=== PATIENT | female | born 1970 ===

== ENCOUNTER 2018-08-01 02:47 | Emergency (ER) | payer MEDICAID, OTHER ==
[2018-08-01 03:13] VITALS: RESP 16
[2018-08-01] MEDS ORDERED: Sodium Chloride 0.9% 1,000 ML IV STA (03:16)
[2018-08-01] MEDS ORDERED: Iohexol 240 (50 ml) PO ONE (03:17)
--- NOTE | 2018-08-01 03:19 | ED PDOC ---
HPI: Abdomen Chief Complaint (Provider): abdominal pain History Per: Patient History/Exam Limitations: no limitations Onset/Duration Of Symptoms: Days (3) Current Symptoms Are (Timing): Still Present Location Of Pain/Discomfort: Diffuse Associated Symptoms: Diarrhea Additional Complaint(s): 48 y/o female presents for evaluation of diffuse abdominal pain x 3 days. Ass ociated multiple episodes of watery diarrhea. Patient reports two episodes of vomiting at onset, none since. Denies fever, chest pain, shortness of breath, palpitations, urinary symptoms, recent travel, sick contacts. Abnormal Vaginal Bleeding: No <Roseann Mccurdy - Last Filed: 08/01/18 04:40> <Enzo Sorensen - Last Filed: 08/01/18 06:36> Time Seen by Provider: 08/01/18 03:00 Chief Complaint (Nursing): GI Problem Past Medical History Reviewed: Historical Data, Nursing Documentation, Vital Signs Vital Signs: Last Vital Signs Temp 97.8 F 08/01/18 03:08 Pulse 90 08/01/18 03:08 Resp 16 08/01/18 03:08 BP 117/64 08/01/18 03:08 Pulse Ox 100 08/01/18 03:08 - Medical History PMH: Hepatitis (B), Hypothyroidism, Pancreatitis Denies: Chronic Kidney Disease - Surgical History Surgical History: Cholecystectomy - Family History Family History: States: No Known Family Hx - Living Arrangements Living Arrangements: Alone - Social History Current smoker - smoking cessation education provided: No Alcohol: None Drugs: Denies <Roseann Mccurdy - Last Filed: 08/01/18 04:40> Vital Signs: Last Vital Signs Temp 97.8 F 08/01/18 03:08 Pulse 90 08/01/18 03:08 Resp 16 08/01/18 03:08 BP 117/64 08/01/18 03:08 Pulse Ox 100 08/01/18 04:54 <Enzo Sorensen - Last Filed: 08/01/18 06:36> - Home Medications Home Medications: Ambulatory Orders Medication Instructions Recorded Dicyclomine [Bentyl] 20 mg PO Q12 PRN #20 tab 08/01/18 Ondansetron ODT [Zofran ODT] 4 mg PO Q6 PRN #8 odt 08/01/18 - Allergies Allergies/Adverse Reactions: Allergies Allergy/AdvReac Type Severity Reaction Status Date / Time No Known Allergies Allergy Verified 08/01/18 03:13 Review of Systems ROS Statement: Except As Marked, All Systems Reviewed And Found Negative Gastrointestinal: Positive for: Abdominal Pain, Diarrhea <Roseann Mccurdy - Last Filed: 08/01/18 04:40> Physical Exam - Reviewed Nursing Documentation Reviewed: Yes Vital Signs Reviewed: Yes - Physical Exam Appears: Positive for: Well, Non-toxic, Uncomfortable Head Exam: Positive for: ATRAUMATIC, NORMAL INSPECTION, NORMOCEPHALIC Skin: Positive for: Normal Color Eye Exam: Positive for: Normal appearance ENT: Positive for: Normal ENT Inspection Cardiovascular/Chest: Positive for: Regular Rate, Rhythm Respiratory: Positive for: Normal Breath Sounds Gastrointestinal/Abdominal: Positive for: Bowel Sounds, Soft, Tenderness (diffuse) Back: Positive for: Normal Inspection Extremity: Positive for: Normal ROM Neurologic/Psych: Positive for: Alert, Oriented (x3) <Roseann cMcurdy - Last Filed: 08/01/18 04:40> - Laboratory Results Result Diagrams: 08/01/18 03:20 08/01/18 03:20 - ECG O2 Sat by Pulse Oximetry: 100 - Progress ED Course And Treament: -cbc -cmp -lipase -urinalysis -IV NS bolus -IV zofran -PO bentyl -CT abd/pelvis <Roseann Mccurdy - Last Filed: 08/01/18 04:40> - Laboratory Results Result Diagrams: 08/01/18 03:20 08/01/18 03:20 <Enzo Sorensen - Last Filed: 08/01/18 06:36> Medical Decision Making Medical Decision Makin Patient endorsed by MICHAEL Toribio, pending CT and reevaluation. 0629 Abdomen/Pelvis CT FINDINGS: LUNG BASES: The lung bases appear clear. No pleural effusions are seen. LIVER: The liver is shrunken and markedly lobulated consistent with advanced cirrhosis. No evidence of hepatic mass. Trace perihepatic ascites noted. GALLBLADDER AND BILE DUCTS: S/p cholecystectomy. Surgical clips are noted in the gallbladder fossa. PANCREAS: Unremarkable. SPLEEN: The spleen is enlarged measuring 15 cm. ADRENAL GLANDS: Unremarkable. KIDNEYS, URETERS, AND BLADDER: The kidneys appear within normal limits. There is no hydronephrosis or hydrou reter. No urinary calculi are seen. STOMACH AND BOWEL: Thick walled fluid filled duodenum and loops of jejunum as well as ileum compatible with enteritis. Infectious and inflammatory etiologies are considered. APPENDIX: No evidence of acute appendicitis on CT examination. PERITONEUM: No free fluid. No free air. LYMPH NODES: No lymphadenopathy is evident. REPRODUCTIVE: Unremarkable as visualized. VASCULATURE: No evidence of abdominal aortic aneurysm. BONES: No aggressive appearing osseous lesion. No acute osseous pathology evident. MISCELLANEOUS: Recanalized paraumbilical veins and perigastric varices are noted. IMPRESSION: Cirrhosis and signs of portal hypertension. Enteritis. Infectious and inflammatory etiologies are considered. 0633 CT reviewed significant for gastroenteritis. Patient is stable for discharge. Scribe Attestation: Documented by Tracie Badillo, acting as a scribe for Enzo Sorensen MD. Provider Scribe Attestation: All medical record entries made by the Scribe were at my direction and personally dictated by me. I have reviewed the chart and agree that the record accurately reflects my personal performance of the history, physical exam, medical decision making, and the department course for this patient. I have also personally directed, reviewed, and agree with the discharge instructions and disposition. <Enzo Sorensen - Last Filed: 08/01/18 06:36> Disposition - Disposition Disposition Time: 05:00 Patient Signed Over To: Enzo Sorensen Handoff Comments: pending CT, re-eval <Roseann Mccurdy - Last Filed: 08/01/18 04:40> - Disposition Disposition: Routine/Home <Enzo Sorensen - Last Filed: 08/01/18 06:36> - Clinical Impression Clinical Impression: Gastroenteritis - Disposition Condition: STABLE Prescriptions: Dicyclomine [Bentyl] 20 mg PO Q12 PRN #20 tab PRN Reason: abdominal pain/diarrhea Ondansetron ODT [Zofran ODT] 4 mg PO Q6 PRN #8 odt PRN Reason: Nausea/Vomiting Instructions: Viral Gastroenteritis, Adult (DC) Forms: [employer] (German) Print Language: TUNISIAN
[2018-08-01] MEDS ORDERED: Iohexol 240 (50 ml) ONE (03:35)
[2018-08-01 03:42] LABS: BASO % 0.8 % (0.0-2.0); EOS # 0.4 K/uL (0.0-0.7); EOS % 7.3 % (0.0-4.0); HEMOGLOBIN 12.9 g/dL (12.0-16.0); LYMPH # 2.5 K/uL (1.0-4.3); LYMPH % 42.4 % (20.0-40.0); MEAN CELL VOLUME 97.2 fl (81.0-99.0); MEAN CORPUSCULAR HEMOGLOBIN 32.3 pg (27.0-31.0); MEAN CORPUSCULAR HGB CONC 33.3 g/dL (33.0-37.0); MEAN PLATELET VOLUME 7.8 fl (7.2-11.7); MONO # 0.3 K/uL (0.0-0.8); MONO % 5.2 % (0.0-10.0); NEUT # 2.6 K/uL (1.8-7.0); NEUT % 44.3 % (50.0-75.0); NRBC % 0.2 % (0.0-0.0); RBC 4.01 Mil/uL (3.80-5.20); RED CELL DISTRIBUTION WIDTH 14.3 % (11.5-14.5); WHITE BLOOD COUNT 5.9 K/uL (4.8-10.8)
[2018-08-01 03:47] LABS: ALBUMIN 4.2 g/dL (3.5-5.0); ALT/SGPT 74 U/L (9-52); AST/SGOT 114 U/L (14-36); BLOOD UREA NITROGEN 9 mg/dl (7-17); CALCIUM 9.2 mg/dL (8.4-10.2); GFR NON-AFRICAN AMERICAN > 60; LIPASE 387 U/L (23-300)
[2018-08-01] MEDS ORDERED: Sodium Chloride 0.9% 50 ML IV ONE (05:17)
[2018-08-01] MEDS ORDERED: Iohexol 300 100 ML IJ ONE (05:17)
[2018-08-01 05:47] LABS: SQUAMOUS EPITHIAL < 1 /hpf (0-5); URINE BACTERIA RARE (<OCC); URINE BILIRUBIN NEGATIVE (NEGATIVE); URINE BLOOD NEGATIVE (NEGATIVE); URINE CLARITY SLIGHTY-CLOUDY (Clear); URINE COLOR YELLOW (YELLOW); URINE GLUCOSE (UA) NEG (NEGATIVE); URINE LEUKOCYTE ESTERASE TRACE Leu/uL (Negative); URINE PROTEIN NEGATIVE (NEGATIVE); URINE UROBILINOGEN 0.2-1.0 mg/dL (0.2-1.0)
[2018-08-01 06:57] VITALS: BP 118/64; PULSE 82; TEMP 98.8; O2SAT 99
--- NOTE | 2018-08-01 11:02 | CT ---
Date of service: 08/01/2018 PROCEDURE: CT Abdomen and Pelvis with contrast HISTORY: abd pain, diarrhea COMPARISON: None. TECHNIQUE: Intravenous contrast dose: 80 cc Omnipaque 300. Radiation dose: Total exam DLP = 230.15 mGy-cm. This CT exam was performed using one or more of the following dose reduction techniques: Automated exposure control, adjustment of the mA and/or kV according to patient size, and/or use of iterative reconstruction technique. FINDINGS: LOWER THORAX: Unremarkable. LIVER: Hepatic steatosis. No focal masses. No intrahepatic bile duct dilatation or perihepatic ascites. Slightly nodular contour to the liver suggests a component of hepatocellular disease/cirrhosis. Patent portal venous system is satisfactorily visualized without evidence portal vein thrombosis GALLBLADDER AND BILE DUCTS: Status post cholecystectomy. No abnormality is seen in the gallbladder fossa. PANCREAS: Unremarkable. No gross lesion or ductal dilatation. SPLEEN: Unremarkable. ADRENALS: Unremarkable. No mass. KIDNEYS AND URETERS: Unremarkable. No hydronephrosis. No solid mass. VASCULATURE: Unremarkable. No aortic aneurysm. No atherosclerotic calcification or mural plaque present. BOWEL: Mild enteritis without mechanical obstructing lesion. APPENDIX: Normal appendix. PERITONEUM: Unremarkable. No free fluid. No free air. LYMPH NODES: Unremarkable. No enlarged lymph nodes. BLADDER: Unremarkable. REPRODUCTIVE: Unremarkable. BONES: No acute fracture. OTHER FINDINGS: None. IMPRESSION: Findings consistent with mild enteritis without obstructing abnormality. Cirrhotic changes identified in the liver. Top-normal spleen. Additional benign and/or incidental findings described above. Concordant results (preliminary interpretation) provided by [employer]. Procedure Completed: 05:25. Preliminary Report: Dictated and Authenticated: 06:29. Final Interpretation: 10:58.
== END 2018-08-01 06:58 | disposition home or self-care (01) ==
LOC: H.ER 02:47
DX: K52.9 Noninfective gastroenteritis and colitis, unspecified (principal); E03.9 Hypothyroidism, unspecified; B19.10 Unspecified viral hepatitis B without hepatic coma; K74.60 Unspecified cirrhosis of liver
CPT/HCPCS: 74177; 80053; 80320; 81003; 83690; 85025; 96360; 99283; J2405; J7030; Q9966; Q9967

== ENCOUNTER 2018-08-05 08:44 | Emergency (ER) | payer MEDICAID, OTHER ==
[2018-08-05 08:51] VITALS: RESP 20
[2018-08-05 09:44] LABS: BASO % 0.8 % (0.0-2.0); EOS # 0.3 K/uL (0.0-0.7); LYMPH % 31.8 % (20.0-40.0); MEAN CORPUSCULAR HEMOGLOBIN 32.4 pg (27.0-31.0); MEAN CORPUSCULAR HGB CONC 33.4 g/dL (33.0-37.0); MEAN PLATELET VOLUME 7.8 fl (7.2-11.7); MONO # 0.4 K/uL (0.0-0.8); MONO % 5.9 % (0.0-10.0); NEUT # 3.7 K/uL (1.8-7.0); NEUT % 57.5 % (50.0-75.0); NRBC % 0.1 % (0.0-0.0); RED CELL DISTRIBUTION WIDTH 14.2 % (11.5-14.5); WHITE BLOOD COUNT 6.4 K/uL (4.8-10.8)
[2018-08-05 09:51] LABS: INR 1.3; PROTHROMBIN TIME 14.6 Seconds (9.8-13.1)
[2018-08-05 09:54] LABS: PARTIAL THROMBOPLASTIN TIME 37.8 Seconds (25.6-37.1)
[2018-08-05 10:10] LABS: ALBUMIN 4.2 g/dL (3.5-5.0); BLOOD UREA NITROGEN 8 mg/dl (7-17); GFR NON-AFRICAN AMERICAN > 60
[2018-08-05 10:11] LABS: ALB/GLOB RATIO 0.9 (1.0-2.1); ALT/SGPT 73 U/L (9-52); AST/SGOT 116 U/L (14-36)
[2018-08-05] MEDS ORDERED: Potassium Chloride 20 mEq ER Tab PO STA (11:04)
--- NOTE | 2018-08-05 11:12 | ED PDOC ---
HPI: General Adult Time Seen by Provider: 08/05/18 09:12 Chief Complaint (Nursing): ENT Problem Chief Complaint (Provider): Sore Throat History Per: Patient History/Exam Limitations: no limitations Onset/Duration Of Symptoms: Days (x2) Current Symptoms Are (Timing): Still Present Additional Complaint(s): 48 year old female presents to the ED for evaluation of throat pain for the past two days associated with spitting up blood. Otherwise denies vomiting, abdominal pain, diarrhea, fever, and difficulty swallowing. PMD: none provided Past Medical History Reviewed: Historical Data, Nursing Documentation, Vital Signs Vital Signs: Last Vital Signs Temp 98.2 F 08/05/18 08:49 Pulse 84 08/05/18 08:49 Resp 20 08/05/18 08:49 BP 121/75 08/05/18 08:49 Pulse Ox 97 08/05/18 08:49 - Medical History PMH: Hepatitis (B), Hyperthyroidism, Hypothyroidism, Pancreatitis Denies: Chronic Kidney Disease - Surgical History Surgical History: Cholecystectomy - Family History Family History: States: Unknown Family Hx - Social History Current smoker - smoking cessation education provided: No Alcohol: None Drugs: Denies - Home Medications Home Medications: Ambulatory Orders Medication Instructions Recorded Dicyclomine [Bentyl] 20 mg PO Q12 PRN #20 tab 08/01/18 Ondansetron ODT [Zofran ODT] 4 mg PO Q6 PRN #8 odt 08/01/18 - Allergies Allergies/Adverse Reactions: Allergies Allergy/AdvReac Type Severity Reaction Status Date / Time No Known Allergies Allergy Verified 08/01/18 03:13 Review of Systems ROS Statement: Except As Marked, All Systems Reviewed And Found Negative Constitutional: Negative for: Fever ENT: Positive for: Throat Pain (but no difficulty swallowing), Other (spitting up blood) Gastrointestinal: Negative for: Vomiting, Abdominal Pain, Diarrhea Physical Exam - Reviewed Nursing Documentation Reviewed: Yes Vital Signs Reviewed: Yes - Physical Exam Appears: Positive for: No Acute Distress Head Exam: Positive for: ATRAUMATIC, NORMOCEPHALIC Skin: Positive for: Normal Color. Negative for: Rash Eye Exam: Positive for: Normal appearance, EOMI, PERRL ENT: Positive for: Normal ENT Inspection. Negative for: Pharyngeal Erythema, Tonsillar Exudate, Tonsillar Swelling Neck: Positive for: Normal, Painless ROM, Supple Cardiovascular/Chest: Positive for: Regular Rate, Rhythm Respiratory: Positive for: Normal Breath Sounds. Negative for: Respiratory Distress Gastrointestinal/Abdominal: Positive for: Normal Exam, Soft. Negative for: Tenderness Neurologic/Psych: Positive for: Alert, Oriented (x3). Negative for: Motor/Sensory Deficits Comments: pt has obvious hoarse voice - Laboratory Results Result Diagrams: 08/05/18 09:30 08/05/18 09:30 - ECG O2 Sat by Pulse Oximetry: 97 (RA) Pulse Ox Interpretation: Normal Medical Decision Making Medical Decision Making: Time: 929 Initial Impression: throat pain Initial Plan: --ABO/RH type --Type and screen --CMP --CBC with differential --PTT / PT --CXR --K-Dur 20meq PO Accession No. : [id number] Patient Name / ID : MING MARTINEZ / [id number] Exam Date : 08/05/2018 10:56:19 ( Approved ) Study Comment : Sex / Age : F / 48Y Creator : Helga Fox MD Dictator : Helga Fox MD Calciner Feeder : Promotion Officer : Helga Fox MD Approver2 : Report Date : 08/05/2018 11:19:23 My Comment : Date of service: 08/05/2018 HISTORY: URI COMPARISON: No prior. TECHNIQUE: Chest PA and lateral FINDINGS: LINES AND TUBES: None. LUNG AND PLEURA: The lungs are well inflated and clear. No pleural effusion or pneumothorax. HEART AND MEDIASTINUM: The heart is not enlarged. No aortic atherosclerotic calcification present. The hilar and mediastinal contours are within normal limits. SKELETAL STRUCTURES: The bony structures are within normal limits for the patient's age. VISUALIZED UPPER ABDOMEN: Normal. OTHER FINDINGS: Surgical clips in the right upper quadrant are related to prior cholecystectomy. IMPRESSION: No active pulmonary disease. Pt refused KDur and Motrin. Scribe Attestation: Documented by Alix Almaraz acting as a scribe for Cuca Dave MD. Provider Scribe Attestation: All medical record entries made by the Scribe were at my direction and personally dictated by me. I have reviewed the chart and agree that the record accurately reflects my personal performance of the history, physical exam, medical decision making, and the department course for this patient. I have also personally directed, reviewed, and agree with the discharge instructions and disposition. Disposition - Clinical Impression Clinical Impression: Laryngitis, URI (upper respiratory infection) - Disposition Referrals: [facility] [Outside] Disposition: Routine/Home Disposition Time: 11:25 Condition: STABLE Instructions: Laryngitis, Viral Upper Respiratory Infection, Adult (DC) Forms: [email or web address] (Armenian)
[2018-08-05] MEDS ORDERED: Potassium Chloride 20 mEq ER Tab PO ONE (11:18)
--- NOTE | 2018-08-05 11:22 | RAD ---
Date of service: 08/05/2018 HISTORY: URI COMPARISON: No prior. TECHNIQUE: Chest PA and lateral FINDINGS: LINES AND TUBES: None. LUNG AND PLEURA: The lungs are well inflated and clear. No pleural effusion or pneumothorax. HEART AND MEDIASTINUM: The heart is not enlarged. No aortic atherosclerotic calcification present. The hilar and mediastinal contours are within normal limits. SKELETAL STRUCTURES: The bony structures are within normal limits for the patient's age. VISUALIZED UPPER ABDOMEN: Normal. OTHER FINDINGS: Surgical clips in the right upper quadrant are related to prior cholecystectomy. IMPRESSION: No active pulmonary disease.
[2018-08-05 11:45] VITALS: BP 115/63; PULSE 89; TEMP 99.8; O2SAT 98
== END 2018-08-05 11:46 | disposition home or self-care (01) ==
LOC: H.ER 08:44
DX: J04.0 Acute laryngitis (principal); R06.9 Unspecified abnormalities of breathing; E05.90 Thyrotoxicosis, unspecified without thyrotoxic crisis or storm

== ENCOUNTER 2018-08-09 07:03 | Emergency (ER) | payer MEDICAID, OTHER ==
--- NOTE | 2018-08-09 08:43 | ED PDOC ---
Upper Extremity Pain/Injury Time Seen by Provider: 08/09/18 07:25 Chief Complaint (Nursing): Upper Extremity Problem/Injury Chief Complaint (Provider): Right Hand Pain History Per: Patient History/Exam Limitations: no limitations Onset/Duration Of Symptoms: Days Current Symptoms Are (Timing): Still Present Quality: "Pain" Additional Complaint(s): 48 year old female presents to the ED for an evaluation of her right hand. Patient reports she was seen at [facility] on the after an object fell on her right hand. She given a tetanus shot upon evaluation at [facility] and given prescription for Keflex and Motrin for which she never filled. Patient did not take any other medication for pain and denies any other symptoms. PMD: unknown Past Medical History Reviewed: Historical Data, Nursing Documentation, Vital Signs - Medical History PMH: Hepatitis (B), Hyperthyroidism, Pancreatitis Denies: Hypothyroidism (Patient denies), Chronic Kidney Disease - Surgical History Surgical History: Cholecystectomy - Family History Family History: States: Unknown Family Hx - Social History Current smoker - smoking cessation education provided: No Alcohol: None Drugs: Denies - Home Medications Home Medications: Ambulatory Orders Medication Instructions Recorded Dicyclomine [Bentyl] 20 mg PO Q12 PRN #20 tab 08/01/18 Ondansetron ODT [Zofran ODT] 4 mg PO Q6 PRN #8 odt 08/01/18 Ibuprofen [Motrin] 600 mg PO Q6H PRN #20 tab 08/05/18 - Allergies Allergies/Adverse Reactions: Allergies Allergy/AdvReac Type Severity Reaction Status Date / Time No Known Allergies Allergy Verified 08/01/18 03:13 Review of Systems ROS Statement: Except As Marked, All Systems Reviewed And Found Negative Constitutional: Negative for: Fever, Chills Respiratory: Negative for: Cough, Shortness of Breath Musculoskeletal: Positive for: Hand Pain (right) Psych: Negative for: Suicidal ideation (homicidal ideation) Physical Exam - Reviewed Nursing Documentation Reviewed: Yes Vital Signs Reviewed: Yes - Physical Exam Appears: Positive for: Non-toxic, No Acute Distress Head Exam: Positive for: ATRAUMATIC, NORMAL INSPECTION, NORMOCEPHALIC Skin: Positive for: Normal Color, Warm, Dry. Negative for: Rash Eye Exam: Positive for: Normal appearance Extremity: Positive for: Other (When dressing removed, ecchymosis to 1st and 2nd right digit; superficial abrasion on IP joint of 1st digit; sensation intact). Negative for: Normal ROM (decreased ROM secondary to pain) Neurologic/Psych: Positive for: Alert, Oriented (x3). Negative for: Motor/Sensory Deficits - ECG Pulse Ox Interpretation: Normal Medical Decision Making Medical Decision Making: Time: 809 Initial Plan: --Keflex 500mg --Ibuprofen 600mg --Hand Right 3 Views [rad] --Reevaluation Time: 945 PROCEDURE: Right Hand Radiographs. HISTORY: 1st and 2nd digit injury COMPARISON: None. FINDINGS: BONES: Normal. No fracture. JOINTS: Normal. No osteoarthritic changes. SOFT TISSUES: Normal. OTHER FINDINGS: None. IMPRESSION: No acute fracture. Please note that the examination is technically limited due to flexion of the 2nd digit and superimposition of the digits in the lateral projection. If there is persistent clinical suspicion of fracture consider additional plain radiographic evaluation. Time: 1115 PROCEDURE: Right Hand Radiographs. HISTORY: REpeat COMPARISON: None. FINDINGS: BONES: Normal. No fracture. JOINTS: Normal. No osteoarthritic changes. SOFT TISSUES: Normal. OTHER FINDINGS: None. IMPRESSION: Normal right hand radiographs. Splints replaced and dressing applied. Scribe Attestation: Documented by Flaco Salazar, acting as a scribe for Cuca Dave MD Provider Scribe Attestation: All medical record entries made by the Scribe were at my direction and personally dictated by me. I have reviewed the chart and agree that the record accurately reflects my personal performance of the history, physical exam, medical decision making, and the department course for this patient. I have also personally directed, reviewed, and agree with the discharge instructions and disposition. Disposition - Clinical Impression Clinical Impression: Visit for wound check, Hand contusion - Disposition Referrals: [facility] [Outside] Disposition: Routine/Home Disposition Time: 11:34 Condition: STABLE Additional Instructions: FILL YOUR PRESCRIPTIONS! Instructions: Contusion (DC) Forms: [employer] (Belarusian)
--- NOTE | 2018-08-09 09:50 | RAD ---
PROCEDURE: Right Hand Radiographs. HISTORY: 1st and 2nd digit injury COMPARISON: None. FINDINGS: BONES: Normal. No fracture. JOINTS: Normal. No osteoarthritic changes. SOFT TISSUES: Normal. OTHER FINDINGS: None. IMPRESSION: No acute fracture. Please note that the examination is technically limited due to flexion of the 2nd digit and superimposition of the digits in the lateral projection. If there is persistent clinical suspicion of fracture consider additional plain radiographic evaluation.
--- NOTE | 2018-08-09 11:19 | RAD ---
PROCEDURE: Right Hand Radiographs. HISTORY: REpeat COMPARISON: None. FINDINGS: BONES: Normal. No fracture. JOINTS: Normal. No osteoarthritic changes. SOFT TISSUES: Normal. OTHER FINDINGS: None. IMPRESSION: Normal right hand radiographs.
[2018-08-09 12:07] VITALS: BP 101/63; PULSE 74; RESP 16; TEMP 98.8; O2SAT 97
== END 2018-08-09 11:55 | disposition home or self-care (01) ==
LOC: H.ER 07:03
DX: E05.90 Thyrotoxicosis, unspecified without thyrotoxic crisis or storm (principal)

== ENCOUNTER 2018-08-11 07:07 | Emergency (ER) | payer MEDICAID, OTHER ==
[2018-08-11 07:15] VITALS: BMI 19.3
[2018-08-11 07:18] VITALS: BP 104/75; PULSE 68; RESP 18; TEMP 98.2; O2SAT 98
--- NOTE | 2018-08-11 07:57 | ED PDOC ---
Upper Extremity Pain/Injury Time Seen by Provider: 08/11/18 07:26 Chief Complaint (Nursing): Upper Extremity Problem/Injury Chief Complaint (Provider): Upper Extremity Problem/Injury History Per: Patient History/Exam Limitations: no limitations Onset/Duration Of Symptoms: Days Current Symptoms Are (Timing): Still Present Additional Complaint(s): 48 y/o female presents to the ED for evaluation of pain to her right hand. Patient was seen by provider two days ago for the same symptoms. Patient had repeat XR performed at that time that demonstrated no fracture. Patient reports of taking antibiotics but nothing for pain. Denies bleeding, fever, any new injury, paresthesia and weakness. PMD: none Past Medical History Reviewed: Historical Data, Nursing Documentation, Vital Signs Vital Signs: Last Vital Signs Temp 98.2 F 08/11/18 07:17 Pulse 68 08/11/18 07:17 Resp 18 08/11/18 07:17 BP 104/75 08/11/18 07:17 Pulse Ox 98 08/11/18 07:17 - Medical History PMH: Hepatitis (B), Hyperthyroidism, Pancreatitis Denies: Hypothyroidism (Patient denies), Chronic Kidney Disease - Surgical History Surgical History: Cholecystectomy - Family History Family History: States: Unknown Family Hx - Home Medications Home Medications: Ambulatory Orders Medication Instructions Recorded Dicyclomine [Bentyl] 20 mg PO Q12 PRN #20 tab 08/01/18 Ondansetron ODT [Zofran ODT] 4 mg PO Q6 PRN #8 odt 08/01/18 Ibuprofen [Motrin] 600 mg PO Q6H PRN #20 tab 08/05/18 - Allergies Allergies/Adverse Reactions: Allergies Allergy/AdvReac Type Severity Reaction Status Date / Time No Known Allergies Allergy Verified 08/01/18 03:13 Review of Systems ROS Statement: Except As Marked, All Systems Reviewed And Found Negative Musculoskeletal: Positive for: Hand Pain (right) Physical Exam - Reviewed Nursing Documentation Reviewed: Yes Vital Signs Reviewed: Yes - Physical Exam Appears: Positive for: No Acute Distress Extremity: Positive for: Other (Right first two digitis plased in a splint. No ecchymosis) - ECG O2 Sat by Pulse Oximetry: 98 (RA) Pulse Ox Interpretation: Normal Medical Decision Making Medical Decision Making: Time: 748 Impression: Right Hand Pain Plan: -- Motrin 600 mg PO -- Tylenol 650 mg PO Scribe Attestation: Documented by Leatha Muniz, acting as a scribe for Cuca Dave MD. Provider Scribe Attestation: All medical record entries made by the Scribe were at my direction and personally dictated by me. I have reviewed the chart and agree that the record accurately reflects my personal performance of the history, physical exam, medical decision making, and the department course for this patient. I have also personally directed, reviewed, and agree with the discharge instructions and disposition. Disposition - Clinical Impression Clinical Impression: Hand pain - Disposition Referrals: [facility] [Outside] Condition: STABLE Additional Instructions: TAKE MEDICATIONS PRESCRIBED. Instructions: Hand Pain Forms: [employer] (Tamazight)
== END 2018-08-11 08:16 | disposition home or self-care (01) ==
LOC: H.ER 07:07
DX: M79.641 Pain in right hand (principal)

== ENCOUNTER 2018-08-13 08:22 | Emergency (ER) | payer MEDICAID, OTHER ==
[2018-08-13 08:22] VITALS: BMI 19.3
--- NOTE | 2018-08-13 09:24 | ED PDOC ---
Upper Extremity Pain/Injury Time Seen by Provider: 08/13/18 09:12 Chief Complaint (Nursing): Upper Extremity Problem/Injury Chief Complaint (Provider): Upper Extremity Problem/Injury History Per: Patient History/Exam Limitations: no limitations Onset/Duration Of Symptoms: Days (x6 days ago) Additional Complaint(s): Juan Lai is a 48 year old female with a past medical history of hyper thyroidism and hepatitis, who presents to the emergency room complaining of having finger numbness. She reports that the she also has hand pain but it is controlled and mild. Patient states that the numbness in the left 2nd digit started yesterday. She was originally seen at [facility] on the 08/07 and was told to come back every x2 days. Due to limited money, patient states she prefers to go a hospital that is closer. Patient came to this ED on the 08/09 and had an xray done, showing no fractures. When asked, she states she was never given a referral for a hand specialist. She states she has been taking her medications. Patient informs the provider that she got the splint wet yesterday and states she smells something from it, causing her to feel nauseous. PMD: no provider Past Medical History Reviewed: Historical Data, Nursing Documentation, Vital Signs Vital Signs: Last Vital Signs Temp 97.9 F 08/13/18 08:26 Pulse 74 08/13/18 08:26 Resp 18 08/13/18 08:26 BP 122/74 08/13/18 08:26 Pulse Ox 99 08/13/18 08:26 - Medical History PMH: Hepatitis (B), Hyperthyroidism, Pancreatitis Denies: Hypothyroidism (Patient denies), Chronic Kidney Disease - Surgical History Surgical History: Cholecystectomy - Family History Family History: States: Unknown Family Hx - Home Medications Home Medications: Ambulatory Orders Medication Instructions Recorded Dicyclomine [Bentyl] 20 mg PO Q12 PRN #20 tab 08/01/18 Ondansetron ODT [Zofran ODT] 4 mg PO Q6 PRN #8 odt 08/01/18 Ibuprofen [Motrin] 600 mg PO Q6H PRN #20 tab 08/05/18 - Allergies Allergies/Adverse Reactions: Allergies Allergy/AdvReac Type Severity Reaction Status Date / Time No Known Allergies Allergy Verified 08/13/18 08:41 Review of Systems ROS Statement: Except As Marked, All Systems Reviewed And Found Negative Gastrointestinal: Positive for: Nausea Musculoskeletal: Positive for: Hand Pain Physical Exam - Reviewed Nursing Documentation Reviewed: Yes Vital Signs Reviewed: Yes - Physical Exam Appears: Positive for: Non-toxic, No Acute Distress Head Exam: Positive for: ATRAUMATIC Skin: Positive for: Normal Color Eye Exam: Positive for: EOMI Respiratory: Negative for: Respiratory Distress Extremity: Positive for: Capillary Refill (less than 2 seconds), Other (ecchymosis from previous injury to the proximal thumb and medial aspect of hand). Negative for: Normal ROM (limited ROM secondary to pain), Tenderness, Deformity, Swelling Neurologic/Psych: Positive for: Alert, Oriented - ECG O2 Sat by Pulse Oximetry: 99 (RA) Pulse Ox Interpretation: Normal Medical Decision Making Medical Decision Making: Time: 929 Impression: contusion of the finger Plan: --Zofran 4mg PO --consult with Dr. Parker. 1100 Dr Parker recommended follow up with hand specialist. There are no criteria for emergent hand evaluation in ER. --------- -------- Scribe Attestation: Documented by Aries Conner, acting as a scribe for Alan Elizabeth MD. Provider Scribe Attestation: All medical record entries made by the Scribe were at my direction and personally dictated by me. I have reviewed the chart and agree that the record accurately reflects my personal performance of the history, physical exam, medical decision making, and the department course for this patient. I have also personally directed, reviewed, and agree with the discharge instructions and disposition. Disposition - Clinical Impression Clinical Impression: Contusion, hand, Finger injury - Patient ED Disposition Is Patient to be Admitted: No Doctor Will See Patient In The: Office Counseled Patient/Family Regarding: Studies Performed, Diagnosis, Need For Followup - Disposition Referrals: Reji Parker MD [Staff Provider] - [facility] [Outside] Disposition: Routine/Home Disposition Time: 11:00 Condition: GOOD Additional Instructions: Follow up with hand specialist param. JUAN LAI, thank you for letting us take care of you today. Your provider was Alan Elizabeth MD and you were treated for RT FINGER NUMBNESS. The emergency medical care you received today was directed at your acute symptoms. If you were prescribed any medication, please fill it and take as directed. It may take several days for your symptoms to resolve. Return to the Emergency Department if your symptoms worsen, do not improve, or if you have any other problems. Please contact your doctor or call one of the physicians/clinics you have been referred to that are listed on the Patient Visit Information form that is included in your discharge packet. Bring any paperwork you were given at discharge with you along with any medications you are taking to your follow up visit. Our treatment cannot replace ongoing medical care by a primary care provider outside of the emergency department. Thank you for allowing the [email or web address] team to be part of your care today. If you had an X-Ray or CT scan: A Radiologist will review the ED reading if any change in treatment is needed we will contact you. If you had a blood, urine, or wound culture: It will take several days for the results, if any change in treatment is needed we will contact you. If you had an STI test: It will take 48 hours for the results. Please call after 1 week if you have not heard back. Instructions: Jammed Finger
[2018-08-13 12:27] VITALS: BP 125/65; PULSE 70; RESP 17; TEMP 99.1
[2018-08-13 12:47] VITALS: O2SAT 99
== END 2018-08-13 13:06 | disposition home or self-care (01) ==
LOC: H.ER 08:22
DX: R20.2 Paresthesia of skin (principal)

== ENCOUNTER 2018-11-09 09:53 | Emergency (ER) | payer MEDICAID, OTHER ==
[2018-11-09 09:53] VITALS: BMI 19.3
[2018-11-09 10:14] VITALS: BP 120/66; PULSE 86; RESP 18; TEMP 98.8; O2SAT 97
--- NOTE | 2018-11-09 10:22 | ED PDOC ---
HPI: CCC, URI, Sore Throat Time Seen by Provider: 11/09/18 10:08 Chief Complaint (Provider): Cough, Cold, Congestion History Per: Patient History/Exam Limitations: no limitations Onset/Duration Of Symptoms: Days Current Symptoms Are (Timing): Still Present Location Of Pain: Ear(s) (right ) Associated Symptoms: Sore Throat, Cough, Nasal Congestion. denies: Chills, Nausea, Vomiting, Diarrhea Additional Complaint(s): 48 year old female with no significant past medical history who is presenting to the ED for evaluation of cough, sore throat, congestion and associated right ear pain onset 3 days ago. Patient states that she had mild body aches but denies any runny, nose, nausea, vomiting, diarrhea, chest pain, fevers, abdominal pain, or rash. She also denies any suicidal or homicidal ideation and states that she has not taken any medications today. Patient offers no other medical complaints at this time. PMD: none provided Past Medical History Reviewed: Historical Data, Nursing Documentation, Vital Signs Vital Signs: Last Vital Signs Temp 98.8 F 11/09/18 10:05 Pulse 86 11/09/18 10:05 Resp 18 11/09/18 10:05 BP 120/66 11/09/18 10:05 Pulse Ox 97 11/09/18 10:05 - Medical History PMH: Hepatitis (B), Hyperthyroidism, Pancreatitis Denies: Hypothyroidism (Patient denies), Chronic Kidney Disease - Surgical History Surgical History: Cholecystectomy - Family History Family History: States: Unknown Family Hx - Social History Current smoker - smoking cessation education provided: No Alcohol: None Drugs: Denies - Immunization History Hx Tetanus Toxoid Vaccination: No Hx Influenza Vaccination: No Hx Pneumococcal Vaccination: No - Home Medications Home Medications: Ambulatory Orders Medication Instructions Recorded Dicyclomine [Bentyl] 20 mg PO Q12 PRN #20 tab 08/01/18 Ondansetron ODT [Zofran ODT] 4 mg PO Q6 PRN #8 odt 08/01/18 Ibuprofen [Motrin] 600 mg PO Q6H PRN #20 tab 08/05/18 Azithromycin [Zithromax] 250 mg PO DAILY 5 Days tab 11/09/18 - Allergies Allergies/Adverse Reactions: Allergies Allergy/AdvReac Type Severity Reaction Status Date / Time No Known Allergies Allergy Verified 08/13/18 08:41 Review of Systems ROS Statement: Except As Marked, All Systems Reviewed And Found Negative ENT: Positive for: Ear Pain, Nose Congestion, Throat Pain. Negative for: Nose Discharge Cardiovascular: Negative for: Chest Pain Respiratory: Positive for: Cough Gastrointestinal: Negative for: Nausea, Vomiting, Abdominal Pain, Diarrhea Physical Exam - Reviewed Nursing Documentation Reviewed: Yes Vital Signs Reviewed: Yes - Physical Exam Appears: Positive for: Non-toxic, No Acute Distress Head Exam: Positive for: ATRAUMATIC, NORMAL INSPECTION, NORMOCEPHALIC Skin: Positive for: Normal Color, Warm, DRY Eye Exam: Positive for: Normal appearance, EOMI, PERRL ENT: Positive for: Nasal Congestion. Negative for: Pharyngeal Erythema, To nsillar Exudate, Tonsillar Swelling Neck: Positive for: Normal, Painless ROM, Supple Cardiovascular/Chest: Positive for: Regular Rate, Rhythm. Negative for: Murmur Respiratory: Positive for: Normal Breath Sounds. Negative for: Respiratory Distress Gastrointestinal/Abdominal: Positive for: Normal Exam Back: Positive for: Normal Inspection Extremity: Positive for: Normal ROM. Negative for: Deformity, Swelling Neurological/Psych: Positive for: Awake, Alert, Normal Tone, Oriented. Negative for: Motor/Sensory Deficits - ECG O2 Sat by Pulse Oximetry: 97 (RA) Pulse Ox Interpretation: Normal - Progress ED Course And Treament: 1019: Stable. AAOx3. No pain. Fu with pcp. Medical Decision Making Medical Decision Making: Time: 10:20 Plan: --Motrin 600 mg PO patient is requesting antibiotics. Scribe Attestation: Documented by Mirna Kaufman, acting as a scribe for Landon Nava MD. Provider Scribe Attestation: All medical record entries made by the Scribe were at my direction and personally dictated by me. I have reviewed the chart and agree that the record accurately reflects my personal performance of the history, physical exam, medical decision making, and the department course for this patient. I have also personally directed, reviewed, and agree with the discharge instructions and disposition. Disposition - Clinical Impression Clinical Impression: URI (upper respiratory infection) - Patient ED Disposition Is Patient to be Admitted: No Counseled Patient/Family Regarding: Diagnosis, Need For Followup, Rx Given - Disposition Referrals: [facility] [Outside] - 11/11/18 Disposition: Routine/Home Disposition Time: 10:21 Condition: STABLE Additional Instructions: Return if not better in 3 days. Prescriptions: Azithromycin [Zithromax] 250 mg PO DAILY 5 Days tab Instructions: Cough, Runny Nose, and the Common Cold (DC)
== END 2018-11-09 10:30 | disposition home or self-care (01) ==
LOC: H.ER 09:53
DX: J06.9 Acute upper respiratory infection, unspecified (principal); E05.90 Thyrotoxicosis, unspecified without thyrotoxic crisis or storm

== ENCOUNTER 2018-11-28 07:15 | Emergency (ER) | payer MEDICAID ==
[2018-11-28 07:22] VITALS: RESP 18; BMI 21.8
[2018-11-28] MEDS ORDERED: Sodium Chloride 0.9% 1,000 ML IV STA ×2 (07:51→08:32)
--- NOTE | 2018-11-28 07:53 | ED PDOC ---
HPI: Abdomen Time Seen by Provider: 11/28/18 07:17 Chief Complaint (Nursing): Abdominal Pain Chief Complaint (Provider): Abd pain History Per: Patient History/Exam Limitations: no limitations Onset/Duration Of Symptoms: Days (few days) Additional Complaint(s): Pt. with abd pain RUQ. Nausea, no vomit. No diarrhea. Had chest yesterday, gone now. No fever, headaches, weakness, dizziness. Had a black and blue spot on abd. Seen by [facility] Dr. Damico and sent to the ER. Past Medical History Reviewed: Nursing Documentation, Vital Signs Vital Signs: Last Vital Signs Temp 97 F L 11/28/18 07:21 Pulse 78 11/28/18 07:21 Resp 18 11/28/18 07:21 BP 109/60 11/28/18 07:21 Pulse Ox 98 11/28/18 07:21 - Medical History PMH: Hepatitis (B), Hyperthyroidism, Pancreatitis Denies: Hypothyroidism (Patient denies), Chronic Kidney Disease - Surgical History Surgical History: Cholecystectomy - Family History Family History: States: Unknown Family Hx - Social History Alcohol: None Drugs: Denies - Immunization History Hx Tetanus Toxoid Vaccination: No Hx Influenza Vaccination: No Hx Pneumococcal Vaccination: No - Home Medications Home Medications: Ambulatory Orders Medication Instructions Recorded Dicyclomine [Bentyl] 20 mg PO Q12 PRN #20 tab 08/01/18 Ondansetron ODT [Zofran ODT] 4 mg PO Q6 PRN #8 odt 08/01/18 Ibuprofen [Motrin] 600 mg PO Q6H PRN #20 tab 08/05/18 Azithromycin [Zithromax] 250 mg PO DAILY 5 Days tab 11/09/18 Ibuprofen [Motrin] 600 mg PO TID 7 Days tab 11/28/18 - Allergies Allergies/Adverse Reactions: Allergies Allergy/AdvReac Type Severity Reaction Status Date / Time No Known Allergies Allergy Verified 08/13/18 08:41 Review of Systems ROS Statement: Except As Marked, All Systems Reviewed And Found Negative Gastrointestinal: Positive for: Nausea, Abdominal Pain Physical Exam - Reviewed Nursing Documentation Reviewed: Yes Vital Signs Reviewed: Yes - Physical Exam Appears: Positive for: Non-toxic, No Acute Distress Head Exam: Positive for: ATRAUMATIC, NORMAL INSPECTION, NORMOCEPHALIC Skin: Positive for: Normal Color, Warm, DRY Eye Exam: Positive for: EOMI, Normal appearance, PERRL ENT: Positive for: Normal ENT Inspection Neck: Positive for: Normal, Painless ROM Cardiovascular/Chest: Positive for: Regular Rate, Rhythm Respiratory: Positive for: CNT, Normal Breath Sounds Gastrointestinal/Abdominal: Positive for: Soft, Tenderness (RUQ), Other (1 echymosis area of 2cm diameter mid lateral abd. mild tender) Back: Positive for: Normal Inspection Extremity: Positive for: Normal ROM. Negative for: Tenderness Neurological/Psych: Positive for: Awake, Alert, Normal Tone - Laboratory Results Result Diagrams: 11/28/18 08:50 11/28/18 08:50 Interpretation Of Abn Labs: similar to old Urine POC: Negative Urine dip results: Negative for: Leukocyte Esterase, Nitrate - ECG ECG: Positive for: Interpreted By Me, Viewed By Me ECG Rhythm: Positive for: Normal QRS, Normal ST Segment, Sinus Rhythm O2 Sat by Pulse Oximetry: 98 Pulse Ox Interpretation: Normal - Radiology X-Ray: Read By Radiologist X-Ray Interpretation: No Acute Disease - CT Scan/US US Other Rad Studies (CT/US): Read By Radiologist Other Rad Interpretation: no acute ct Other Rad Studies (CT/US): Read By Radiologist Other Rad Interpretation: No acute - Progress ED Course And Treament: 1436: Stable. AAOx3. Pain free. Tolerated PO. Fu with pcp. Disposition - Clinical Impression Clinical Impression: Abdominal discomfort - Patient ED Disposition Is Patient to be Admitted: No Counseled Patient/Family Regarding: Studies Performed, Diagnosis, Need For Followup, Rx Given - Disposition Disposition: Routine/Home Disposition Time: 14:36 Condition: STABLE Additional Instructions: Return if not better in 3 days. Prescriptions: Ibuprofen [Motrin] 600 mg PO TID 7 Days tab Instructions: Stomach Ache and Stomach Upset Forms: [facility] ED School/Work Excuse
[2018-11-28] MEDS ORDERED: Iohexol 240 (50 ml) PO ONE (08:30)
[2018-11-28 08:59] LABS: BASO % 0.8 % (0.0-2.0); EOS # 0.2 K/uL (0.0-0.7); EOS % 5.4 % (0.0-4.0); HEMOGLOBIN 12.1 g/dL (12.0-16.0); LYMPH # 1.2 K/uL (1.0-4.3); LYMPH % 41.8 % (20.0-40.0); MEAN CELL VOLUME 93.5 fl (81.0-99.0); MEAN CORPUSCULAR HEMOGLOBIN 31.5 pg (27.0-31.0); MEAN CORPUSCULAR HGB CONC 33.7 g/dL (33.0-37.0); MEAN PLATELET VOLUME 8.1 fl (7.2-11.7); MONO # 0.2 K/uL (0.0-0.8); MONO % 6.5 % (0.0-10.0); NEUT # 1.3 K/uL (1.8-7.0); NEUT % 45.5 % (50.0-75.0); RBC 3.82 Mil/uL (3.80-5.20); WHITE BLOOD COUNT 2.8 K/uL (4.8-10.8)
[2018-11-28 09:16] LABS: ALB/GLOB RATIO 0.9 (1.0-2.1); ALBUMIN 3.5 g/dL (3.5-5.0); ALT/SGPT 59 U/L (9-52); AST/SGOT 81 U/L (14-36); BLOOD UREA NITROGEN 10 mg/dl (7-17); CALCIUM 8.3 mg/dL (8.4-10.2); GFR NON-AFRICAN AMERICAN > 60; LIPASE 213 U/L (23-300)
[2018-11-28 09:22] LABS: INR 1.3; PROTHROMBIN TIME 14.2 Seconds (9.8-13.1)
[2018-11-28 09:25] LABS: PARTIAL THROMBOPLASTIN TIME 36.5 Seconds (25.6-37.1)
--- NOTE | 2018-11-28 10:19 | US ---
Date of service: 11/28/2018 HISTORY: abd pain RUQ COMPARISON: None. TECHNIQUE: Sonographic evaluation of the right upper quadrant of the abdomen. FINDINGS: LIVER: Measures 13.0 cm in length. Diffusely increased echogenicity of the liver parenchyma. Consistent with fatty infiltration. No mass. No biliary dilatation. Smooth contour. GALLBLADDER: Status post cholecystectomy COMMON BILE DUCT: Measures 6 mm. No stones. No dilatation. PANCREAS: Unremarkable as visualized. No mass. No ductal dilatation. RIGHT KIDNEY: Measures 10.8 cm in length. Normal echogenicity. No calculus, mass, or hydronephrosis. AORTA: No aneurysmal dilatation. IVC: Unremarkable. OTHER FINDINGS: None . IMPRESSION: Fatty infiltration of the liver. Status post cholecystectomy. No evidence of biliary obstruction. Otherwise unremarkable.
--- NOTE | 2018-11-28 11:11 | RAD ---
Date of service: 11/28/2018 HISTORY: chest pain COMPARISON: 08/05/2018 TECHNIQUE: 1 view obtained. FINDINGS: LUNGS: No active pulmonary disease. PLEURA: No significant pleural effusion identified, no pneumothorax apparent. CARDIOVASCULAR: No aortic atherosclerotic calcification present. Normal cardiac size. No pulmonary vascular congestion. OSSEOUS STRUCTURES: No significant abnormalities. VISUALIZED UPPER ABDOMEN: Normal. OTHER FINDINGS: None. IMPRESSION: No active disease.
[2018-11-28] MEDS ORDERED: Sodium Chloride 0.9% 50 ML IV ONE (13:07)
[2018-11-28] MEDS ORDERED: Iohexol 300 100 ML IJ ONE (13:07)
--- NOTE | 2018-11-28 13:50 | CT ---
Date of service: 11/28/2018 PROCEDURE: CT Abdomen and Pelvis with contrast HISTORY: abd pain COMPARISON: Limited abdominal ultrasound performed 11/28/18 TECHNIQUE: Contrast dose: 95 mL Omnipaque 300 IV Radiation dose: Total exam DLP = 372.85 mGy-cm. This CT exam was performed using one or more of the following dose reduction techniques: Automated exposure control, adjustment of the mA and/or kV according to patient size, and/or use of iterative reconstruction technique. FINDINGS: LOWER THORAX: No visible consolidation, pleural effusion, or pneumothorax. Small hiatal hernia/distal esophageal wall thickening. LIVER: Markedly nodular wall contour. Hypoattenuation of the liver compatible with hepatic steatosis. GALLBLADDER AND BILE DUCTS: Cholecystectomy. PANCREAS: Unremarkable. SPLEEN: Splenomegaly. ADRENALS: Unremarkable. KIDNEYS AND URETERS: The kidneys enhance symmetrically. No hydronephrosis or obstructing calculus identified. VASCULATURE: No aortic aneurysm. No atherosclerotic calcification or mural plaque present. BOWEL: Stomach is nondistended. Lack of oral contrast limits evaluation for bowel pathology. Bowel loops appear within normal limits of caliber without evidence of obstruction. APPENDIX: The appendix appears within normal limits of caliber. No secondary signs of acute appendicitis. PERITONEUM: Small pelvic free fluid. No definite free air. LYMPH NODES: No bulky adenopathy identified. BLADDER: Unremarkable. REPRODUCTIVE: Uterus is present. Prominent pelvic vasculature may be related pelvic congestion syndrome. BONES: No acute osseous abnormality is detected. OTHER FINDINGS: None. IMPRESSION: Markedly nodular wall contour. Hypoattenuation of the liver compatible with hepatic steatosis. Splenomegaly. Cholecystectomy. Prominent pelvic vasculature may be related pelvic congestion syndrome. Small pelvic free fluid. Small hiatal hernia/distal esophageal wall thickening.
[2018-11-28 14:44] VITALS: BP 110/75; PULSE 71; TEMP 97.7; O2SAT 100
--- NOTE | 2018-11-28 23:02 | CARD ---
APPROVED REPORT Date of service: 11/28/2018 EKG Measurement Heart [id number] <Conclusion> Normal sinus rhythm Normal ECG
== END 2018-11-28 15:00 | disposition home or self-care (01) ==
LOC: H.ER 07:15
DX: R10.11 Right upper quadrant pain (principal); E05.90 Thyrotoxicosis, unspecified without thyrotoxic crisis or storm; K22.9 Disease of esophagus, unspecified; K44.9 Diaphragmatic hernia without obstruction or gangrene
CPT/HCPCS: 71045; 74177; 76705; 80053; 81025; 83690; 84484; 85025; 85610; 85730; 93005; 96374; 99284; J2405; J7030; Q9967